=== PATIENT | female | born 1985 | race Two or more races ===

== ENCOUNTER 2024-07-19 05:08 | Emergency (ER) | payer MEDICAID, SELFPAY ==
[2024-07-19 05:21] VITALS: BP 122/71; PULSE 109; RESP 17; TEMP 36.9; O2SAT 98
[2024-07-19 05:22] VITALS: BMI 30.7
--- NOTE | 2024-07-19 05:27 | PD.EDRME ---
Rapid Medical Screening Exam RME Arrival date/time: 07/19/24 05:08 38-year-old female with past medical history of diverticulosis presents emergency department complaining of left lower quadrant abdominal pain with nausea that started yesterday. Chief Complaint: Abdominal Pain Time Seen by Provider: 07/19/24 05:23 Vital signs: Vital Signs Temperature 98.4 F 07/19/24 05:21 Pulse Rate 109 H 07/19/24 05:21 Respiratory Rate 17 07/19/24 05:21 Blood Pressure 122/71 07/19/24 05:21 Pulse Oximetry (%) 98 07/19/24 05:21 Oxygen Delivery Method Room Air 07/19/24 05:21 Vital signs reviewed by provider: Yes
[2024-07-19] MEDS: HYDROcodone/APAP 5/325 TABLET 1 TAB PO (05:36)
[2024-07-19] MEDS: ONDANSETRON ODT 4 MG TABRAP PO (05:36)
[2024-07-19 05:56] LABS: Collection Type, Urine Clean Catch
[2024-07-19 05:59] LABS: Bilirubin,Urine Negative (Negative); Blood,Urine 1+ (Negative); Clarity,Urine Clear (Clear/Hazy); Color,Urine Lt-Yellow (Lt Yel-Yel); Culture Indicated,Urine Not Indicated; Glucose, Urine Negative (Negative); Ketones,Urine Negative (Negative); Leukocyte Esterase,Urine Negative (Negative); Nitrite,Urine Negative (Negative); Protein,Urine Trace (Neg - Trace); RBC,Urine 4 /hpf (0-3); Squamous Epithelial Cell,Urine 2 /hpf (0-5); Urobilinogen,Urine Negative mg/dL (0.0-1.0); WBC,Urine 2 /hpf (0-5)
--- NOTE | 2024-07-19 06:20 | XR_ITS ---
Examination: CT abdomen and pelvis without contrast. Coronal 3-D reconstructions. Sagittal 2-D reconstructions. Date and time of exam:July 19, 2024 0748 hrs. Indications: Left-sided abdominal pain beginning today Comparison: July 03, 2023 CTDI: vol (mGy): 11.1 DLP: (mGycm): 652 Technique: Axial images of the abdomen have been obtained, 3 mm slice thickness Intravenous contrast material has not been administered. Low dose protocols were performed. One or more of the following dose reduction techniques were used; automated exposure control, adjustment of the mA and/or KV according to patient size, use of iterative reconstruction technique. 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
[2024-07-19 06:29] LABS: Basophils % (Auto) 0 % (0-2.5); Eosinophils % (Auto) 0 % (0-10); Hematocrit 34.4 % (36.0-46.0); Hemoglobin 11.6 g/dL (12.0-16.0); Immature Granulocytes % (Auto) 0 % (0-0); Immature Granulocytes Auto 0.04 Thou/mm3 (0.00-0.00); Lymphocytes # (Auto) 1.1 Thou/mm3 (1.0-4.8); Lymphocytes % (Auto) 9 % (10-50); Mean Corpuscular HGB Conc 33.7 g/dl (31.0-37.0); Mean Corpuscular Hemoglobin 29.8 pg (25.0-35.0); Mean Corpuscular Volume 88 fL (80-100); Monocytes % (Auto) 9 % (0-12); Neutrophils % (Auto) 81 % (37-80); Nucleated Red Blood Cell % 0 /100 WBC (0); Platelet Count 306 Thou/mm3 (140-440); RDW Standard Deviation 41.4 fL (36.4-46.3); Red Blood Count 3.89 Miln/mm3 (4.00-5.20); White Blood Count 11.2 Thou/mm3 (3.6-11.0)
[2024-07-19 06:49] LABS: Alanine Aminotransferase 32 U/L (10-49); Albumin, Serum 4.7 gm/dL (3.5-5.0); Albumin/Globulin Ratio 1.6 (1.2-2.2); Alkaline Phosphatase 91 U/L (46-116); Anion Gap 6 (7-16); Aspartate Amino Transferase 40 U/L (0-34); BUN/Creatinine Ratio 27 Ratio (12-20); Bilirubin,Total 0.6 mg/dL (0.3-1.2); Blood Urea Nitrogen 16 mg/dL (9-23); Calcium 9.3 mg/dL (8.3-10.6); Calcium (Corrected) 9.3 mg/dL (8.5-10.1); Carbon Dioxide 28.3 mMol/L (20.0-31.0); Chloride 102 mMol/L (98-107); Creatinine (Component) 0.6 mg/dL (0.6-1.3); Estimated Creatinine Clearance 140.6 mL/min (>60); Globulin 2.9 gm/dL (2.3-3.5); Glucose 110 mg/dL (74-106); Lipase 39 U/L (12-53); Osmolality,Calculated 274 (275-295); Sodium 136 mMol/L (136-145); Total Protein 7.6 gm/dL (5.7-8.2); eGFR > 60 See Note
[2024-07-19 07:23] LABS: HCG,Qualitative Serum Negative
--- NOTE | 2024-07-19 08:58 | EDNOTE_ITS ---
<Statement entered by Sharon Turcios MD - 07/19/24 16:22> As co-signing physician, I was present and available for consult prn. I concur with the plan and care as documented by the midlevel provider. ED Abdominal Pain RME/HPI General Chief Complaint: Abdominal Pain Stated complaint: LLQ PAIN Time seen by provider: 07/19/24 05:23 Arrival date/time: 07/19/24 05:08 38-year-old female with history of chronic abdominal pain/diverticulitis/possible Crohn's disease with surgical history significant for gastric sleeve 5 years ago presents to the emergency department today with complaint of left lower quadrant pain x 1 day Limitations: no limitations RME / HPI RME / HPI narrative: 07/19/24 05:08 38-year-old female with past medical history of diverticulosis presents emergency department complaining of left lower quadrant abdominal pain with nausea that started yesterday. Related Data Home Medications ?Medication ?Instructions ?Recorded ?Confirmed fluoxetine 20 mg capsule 20 mg PO DAILY 05/24/22 05/26/22 Previous Rx's ?Medication ?Instructions ?Recorded azathioprine 50 mg tablet 50 mg PO QDAY #30 tabs 05/26/22 folic acid 1 mg tablet 1 mg PO QDAY #30 tabs 05/26/22 cyclobenzaprine 5 mg tablet 5 mg PO QHSPRN PRN muscle spasm 02/18/23 #10 tabs ibuprofen 600 mg tablet 600 mg PO TID PRN pain #30 tabs 02/18/23 acetaminophen 650 mg 650 mg PO Q8H PRN fever or pain 07/04/23 tablet,extended release #30 tabs ciprofloxacin HCl 500 mg tablet 500 mg PO BID 7 days #14 tabs 07/19/24 hydrocodone 5 mg-acetaminophen 325 1 tab PO BID PRN pain #10 tabs 07/19/24 mg tablet metronidazole 500 mg tablet 500 mg PO TID 7 days #21 tabs 07/19/24 Allergies Allergy/AdvReac Type Severity Reaction Status Date / Time No Known Allergies Allergy Verified 05/24/22 21:40 Review of Systems Review of Systems Systems Reviewed: All systems reviewed, normal except as documented Constitutional Constitutional: Reports system reviewed and no additional complaints, except as documented, Denies fever(s) and Denies headache(s) Eyes Eyes: Reports system reviewed and no additional complaints, except as documented and Denies blurry vision ENT Ears, Nose, Mouth, and Throat: Reports system reviewed and no additional complaints, except as documented, Denies headache(s), Denies nasal congestion and Denies nasal discharge Cardiovascular Cardiovascular: Reports system reviewed and no additional complaints, except as documented, Denies chest pain and Denies dyspnea Respiratory Respiratory: Reports system reviewed and no additional complaints, except as documented, Denies chest congestion, Denies cough and Denies dyspnea Gastrointestinal Gastrointestinal: Reports system reviewed and no additional complaints, except as documented and Reports abdominal pain Integumentary/Breasts Skin/Breast: Reports system reviewed and no additional complaints, except as documented and Denies rash Neurologic Neurologic: Reports system reviewed and no additional complaints, except as documented, Reports as per HPI and Denies headache(s) Past Medical History Past Medical History NEUROLOGIC: Negative Neurological Disorders or Seizures CARDIAC: Positive Hypertension; Negative Cardiac Disorders or Congestive Heart Failure RESPIRATORY: Negative Chronic Obstructive Pulmonary Disease (COPD) or Asthma GASTROINTESTINAL: Positive Gastrointestinal Disorders, Diverticulitis, Diverticulosis and Crohn's Disease; Negative Hepatitis, Gall Bladder Disease, Gastrointestinal Bleed, Colitis, Ulcerative Colitis, Ulcer, Colorectal Cancer, Irritable Bowel or Gastroesophageal Reflux Disease GENITOURINARY: Negative Genitourinary Disorders or Renal Disease REPRODUCTIVE: Positive Previous Pregnancies; Negative Breast Cancer MUSCULOSKELETAL: Negative Musculoskeletal Disorders or Bone Cancer ENDOCRINE: Negative Endocrine Disorders, Diabetes Mellitus Type 1 or Diabetes Mellitus Type 2 HEMATOLOGIC: Negative Blood Disorders, Anemia, Sickle Cell Disease or Clotting Problems PSYCHO/SOCIAL: Positive Depression and Anxiety OTHER HISTORY: Positive Chicken Pox; Negative Autoimmune Disease, Falls, Blood Transfusions, Anesthesia Reactions, MRSA, Cancer, Breast Cancer, Cervical Cancer, Colorectal Cancer, Lung Cancer or Ovarian Cancer Family History FAMILY HISTORY: Positive Family Cardiac Disorders; Negative Family Psychiatric Problems, Family Respiratory Disorders, Family Gastrointestinal Problems, Family Cancer, Family Surgery or Family Anesthesia Reaction Surgical History SURGICAL: Positive Abdominal Surgery, Tubal Ligation and Section; Negative Cardiac Surgery, Endocrine Surgery, Ear Surgery, Nephrectomy or Joint Replacement Social History SMOKING STATUS: Never smoker SECOND HAND EXPOSURE: No SUBSTANCE USE: does not use ED Exam General Limitations: Present no limitations General appearance: Present alert and in no apparent distress Head Head exam: Present atraumatic, normocephalic and normal inspection Eye Eye exam: Present normal appearance, PERRL and EOMI; Absent conjunctival injection ENT ENT exam: Present normal exam, normal oropharynx and mucous membranes moist Neck Neck exam: Present normal inspection, full ROM and trachea midline Chest Chest inspection: Present normal inspection and symmetric chest wall rise Respiratory Respiratory exam: Present normal lung sounds bilaterally; Absent respiratory distress Cardiovascular Cardiovascular exam: Present regular rate, normal rhythm and normal heart sounds Abdominal Exam Abdominal exam: Present soft, tenderness and normal bowel sounds; Absent distention, guarding, rebound or rigidity Abdominal tenderness: Present LLQ, mild and moderate Extremities Exam Extremities exam: Present normal inspection and full ROM Back Exam Back exam: Present normal inspection and full ROM Neurological Exam Neurological exam: Present alert, oriented X3 and CN II-XII intact Psychiatric Psychiatric exam: Present normal affect and normal mood Skin Skin exam: Present warm, dry, intact and normal color Course Quality Measures none Orders Category Date Time Status CT abdomen pelvis wo con Stat Exams 07/19/24 06:20 Completed CBC Stat Lab 07/19/24 06:22 Completed CMP [Comprehensive Metabolic Panel] Stat Lab 07/19/24 06:22 Completed HCG,Qualitative Serum Stat Lab 07/19/24 06:22 Completed Lipase Stat Lab 07/19/24 06:22 Completed Urinalysis, C/S if Indicated Stat Lab 07/19/24 05:47 Completed HYDROcodone*/APAP 5/325 [[place] 5/325] Med 07/19/24 05:26 Discontinued 1 tab PO X1 ONE Ketorolac Inj [Toradol Inj] Med 07/19/24 08:59 Discontinued 30 mg IM X1 ONE Lidocaine 1% 20 ml [Xylocaine 1% 20 ML] Med 07/19/24 08:59 Discontinued 2.1 ml INFL X1 ONE Ondansetron Odt [Zofran Odt] Med 07/19/24 05:26 Discontinued 4 mg PO X1 ONE cefTRIAXone [Rocephin] Med 07/19/24 08:59 Discontinued 1,000 mg IM X1 ONE Vital Signs Vital signs: Vital Signs Temperature 98.4 F 07/19/24 05:21 Pulse Rate 109 H 07/19/24 05:21 Respiratory Rate 17 07/19/24 05:21 Blood Pressure 122/71 07/19/24 05:21 Pulse Oximetry (%) 98 07/19/24 05:21 Oxygen Delivery Method Room Air 07/19/24 05:21 O2 saturation 98% room air within the limits Abdominal Pain MDM MDM Narrative MDM Narrative:: 38-year-old female with history of chronic abdominal pain/diverticulitis/possible Crohn's disease with surgical history significant for gastric sleeve 5 years ago presents to the emergency department today with complaint of left lower quadrant pain x 1 day On exam patient is tenderness left lower abdomen Patient given pain medication here Lab work and CT reviewed Lab work unremarkable CT shows significant diverticulitis As patient is afebrile has no vomiting patient was given Rocephin here discharged with antibiotics instructed return tomorrow for repeat injection of Rocephin Consultation: Based on the CT reading I consulted Dr. Davis who evaluated the patient and felt the patient be discharged home at this time without any further surgical intervention Patient discharged home in no distress to follow-up with primary care doctor in the next 24 to 48 hours and for any worsening symptoms to return to the ER immediately Patient data External records reviewed:: [facility] previous records Clinical information provided by:: patient Social determinants that could affect healthcare access:: none Patient has the following chronic illnesses:: See history How is presenting disease/condition affected by chronic disease/condition?: caused by Evaluation data The following diagnostics were reviewed and interpreted by me:: lab results and radiology exam(s) Lab and/or radiology exams considered but not ordered:: Labs radiology obtained Interpretation Summary: Reviewed by me Medications / Prescriptions Medications or Prescriptions considered but not ordered:: Given Medication administrations:: Medication Administration History Discontinued Medications Hydrocodone Bitart/Acetaminophen (Hydrocodone/[place] 5/325 Tablet) 1 tab PO X1 ONE Stop: 07/19/24 05:27 Last Admin: 07/19/24 05:36 Dose: 1 tab Documented By: SANTOS Ceftriaxone Sodium (Ceftriaxone Sod Inj 1,000 Mg Vial) 1,000 mg IM X1 ONE Stop: 07/19/24 09:00 Last Admin: 07/19/24 09:07 Dose: 1,000 mg Documented By: AMANDA Ketorolac Tromethamine (Ketorolac Inj 30 Mg/Ml Vial) 30 mg IM X1 ONE Stop: 07/19/24 09:00 Last Admin: 07/19/24 09:06 Dose: 30 mg Documented By: AMANDA Lidocaine HCl (Lidocaine Hcl 1% 20 Ml Vial) 2.1 ml INFL X1 ONE Stop: 07/19/24 09:00 Last Admin: 07/19/24 09:07 Dose: 2.1 ml Documented By: AMANDA Comments: with rocephin on right hip Ondansetron HCl (Ondansetron Odt 4 Mg Tabrap) 4 mg PO X1 ONE; Protocol Stop: 07/19/24 05:27 Last Admin: 07/19/24 05:36 Dose: 4 mg Documented By: CB Given Consultations Consultation(s) initiated? (list below): Yes Consultation #1 (Physician, Specialty, Details): Dr. Davis Diagnosis Differential diagnosis abdominal pain: abdominal pain, acute appendicitis, gastroenteritis and pancreatitis Most likely diagnosis given after review of the tests above:: Abdominal pain Admission Indicated Admission indicated?: not indicated Admission Request Was there a request for admission?: No Disposition Plan Disposition Plan: Discharge Discharge Attestation Discharge Attestation: The patient and all family members were given an opportunity to ask questions and understood the discharge instructions. Discharge instructions specifically effects, indications for sooner follow up or return to the emergency department, and the expected course of current diagnosis. Patient condition: Stable Discharge Plan Plan Patient Disposition: HOME (Self Care) Disposition Comment: Stable Prescriptions/Referrals Prescriptions/Med Rec: New hydrocodone-acetaminophen 5-325 mg tablet 1 tab PO BID MDD 10 PRN (Reason: pain) Qty: 10 0RF metronidazole 500 mg tablet 500 mg PO TID 7 Days Qty: 21 0RF ciprofloxacin HCl 500 mg tablet 500 mg PO BID 7 Days Qty: 14 0RF No Action fluoxetine 20 mg capsule 20 mg PO DAILY azathioprine 50 mg Tablet 50 mg PO QDAY Qty: 30 0RF folic acid 1 mg Tablet 1 mg PO QDAY Qty: 30 0RF ibuprofen 600 mg tablet 600 mg PO TID PRN (Reason: pain) Qty: 30 0RF cyclobenzaprine 5 mg tablet 5 mg PO QHSPRN PRN (Reason: muscle spasm) Qty: 10 0RF acetaminophen 650 mg tablet extended release 650 mg PO Q8H PRN (Reason: fever or pain) Qty: 30 0RF Referrals: No Primary/Family,Physician [Primary Care Provider] - In 1 week Problem List Clinical Impression: Diverticulitis Patient/Caregiver Discharge Instructions Education Materials: ED Diverticulitis Additional Instructions: Please return tomorrow for repeat injection of Rocephin for worsening symptoms or concerns return to ER immediately Print Language: [place] Citizen Stand Alone Forms: Brenda Award Info., Patient Portal Info Letter PA/PROGRAMMING EQUIPMENT OPERATOR Supervising Physician PA/PROGRAMMING EQUIPMENT OPERATOR Supervising Physician: Dr. turcios
[2024-07-19] MEDS: KETOROLAC INJ 30 MG/ML VIAL IM (09:06)
[2024-07-19 09:07] VITALS: BP 112/72; PULSE 84; RESP 18; TEMP 37.1; O2SAT 99
[2024-07-19] MEDS: cefTRIAXone SOD INJ 1,000 MG VIAL 1000 MG IM (09:07)
[2024-07-19] MEDS: LIDOCAINE HCL 1% 20 ML VIAL 2.1 ML INFL (09:07)
== END 2024-07-19 09:26 | disposition home or self-care (01) ==
PROVIDERS: Emergency Provider Emergency Medicine
DX: K57.32 Diverticulitis of large intestine without perforation or abscess without bleeding (principal)
CPT/HCPCS: 36415; 74176; 80053; 81001; 83690; 84703; 85025; 96372; 99284; J0696; J1885; J3490; Q0162; A9270

== ENCOUNTER 2024-07-20 11:32 | Emergency (ER) | payer MEDICAID, SELFPAY ==
--- NOTE | 2024-07-20 11:36 | EDNOTE_ITS ---
<Statement entered by Sharon Turcios MD - 07/20/24 16:22> As co-signing physician, I was present and available for consult prn. I concur with the plan and care as documented by the midlevel provider. ED General RME/HPI General Chief complaint: General Adult/Misc Complain Stated complaint: REPEAT ROCEPHIN INJECTION Time Seen by Provider: 07/20/24 11:33 Arrival date/time: 07/20/24 11:32 38-year-old female diagnosed with diverticulitis yesterday presents emergency department today was instructed by myself to return for repeat Rocephin injection. Patient reports no fever nausea vomiting patient reports abdominal pain has improved Limitations: no limitations Related Data Home Medications ?Medication ?Instructions ?Recorded ?Confirmed fluoxetine 20 mg capsule 20 mg PO DAILY 05/24/22 05/26/22 Previous Rx's ?Medication ?Instructions ?Recorded azathioprine 50 mg tablet 50 mg PO QDAY #30 tabs 05/26/22 folic acid 1 mg tablet 1 mg PO QDAY #30 tabs 05/26/22 cyclobenzaprine 5 mg tablet 5 mg PO QHSPRN PRN muscle spasm 02/18/23 #10 tabs ibuprofen 600 mg tablet 600 mg PO TID PRN pain #30 tabs 02/18/23 acetaminophen 650 mg 650 mg PO Q8H PRN fever or pain 07/04/23 tablet,extended release #30 tabs ciprofloxacin HCl 500 mg tablet 500 mg PO BID 7 days #14 tabs 07/19/24 hydrocodone 5 mg-acetaminophen 325 1 tab PO BID PRN pain #10 tabs 07/19/24 mg tablet metronidazole 500 mg tablet 500 mg PO TID 7 days #21 tabs 07/19/24 Allergies Allergy/AdvReac Type Severity Reaction Status Date / Time No Known Allergies Allergy Verified 05/24/22 21:40 Review of Systems Review of Systems Systems Reviewed: All systems reviewed, normal except as documented Constitutional Constitutional: Reports system reviewed and no additional complaints, except as documented, Denies fever(s) and Denies headache(s) Eyes Eyes: Reports system reviewed and no additional complaints, except as documented and Denies blurry vision ENT Ears, Nose, Mouth, and Throat: Reports system reviewed and no additional complaints, except as documented, Denies headache(s), Denies nasal congestion and Denies nasal discharge Cardiovascular Cardiovascular: Reports system reviewed and no additional complaints, except as documented, Denies chest pain and Denies dyspnea Respiratory Respiratory: Reports system reviewed and no additional complaints, except as documented, Denies chest congestion, Denies cough and Denies dyspnea Gastrointestinal Gastrointestinal: Reports system reviewed and no additional complaints, except as documented, Reports abdominal pain, Denies nausea and Denies vomiting Integumentary/Breasts Skin/Breast: Reports system reviewed and no additional complaints, except as documented and Denies rash Neurologic Neurologic: Reports system reviewed and no additional complaints, except as documented, Reports as per HPI and Denies headache(s) Past Medical History Past Medical History NEUROLOGIC: Negative Neurological Disorders CARDIAC: Negative Cardiac Disorders ED Exam General Limitations: Present no limitations General appearance: Present alert and in no apparent distress Head Head exam: Present atraumatic Eye Eye exam: Present normal appearance, PERRL and EOMI ENT ENT exam: Present normal exam, normal oropharynx and mucous membranes moist Neck Neck exam: Present normal inspection, full ROM and trachea midline Chest Chest inspection: Present normal inspection and symmetric chest wall rise Respiratory Respiratory exam: Present normal lung sounds bilaterally Cardiovascular Cardiovascular exam: Present regular rate, normal rhythm and normal heart sounds Abdominal Exam Abdominal exam: Present soft, tenderness and normal bowel sounds; Absent distention, guarding, rebound or rigidity Abdominal tenderness: Present LLQ and mild Extremities Exam Extremities exam: Present normal inspection and full ROM Back Exam Back exam: Present normal inspection and full ROM Neurological Exam Neurological exam: Present alert, oriented X3 and CN II-XII intact Psychiatric Psychiatric exam: Present normal affect and normal mood Skin Skin exam: Present warm, dry, intact and normal color Course Quality Measures none Orders Category Date Time Status Ketorolac Inj [Toradol Inj] Med 07/20/24 11:33 Discontinued 30 mg IM X1 ONE Lidocaine 1% 20 ml [Xylocaine 1% 20 ML] Med 07/20/24 11:33 Discontinued 2.1 ml INFL X1 ONE cefTRIAXone [Rocephin] Med 07/20/24 11:33 Discontinued 1,000 mg IM X1 ONE Vital Signs Vital signs: Vital Signs Temperature 98.3 F 07/20/24 11:42 Pulse Rate 88 07/20/24 11:42 Respiratory Rate 16 07/20/24 11:42 Blood Pressure 106/71 07/20/24 11:42 Pulse Oximetry (%) 99 07/20/24 11:42 Oxygen Delivery Method Room Air 12/25/24 11:42 O2 saturation 99% room air within normal limits MDM Patient data External records reviewed:: [facility] previous records Clinical information provided by:: patient Social determinants that could affect healthcare access:: none Patient has the following chronic illnesses:: See history How is presenting disease/condition affected by chronic disease/condition?: exacerbated by Evaluation data The following diagnostics were reviewed and interpreted by me:: lab results and radiology exam(s) Lab and/or radiology exams considered but not ordered:: Labs and radiology improvement yesterday Interpretation Summary: Reviewed by me Medications Medications considered but not ordered:: Given Medication administrations:: Medication Administration History Discontinued Medications Ceftriaxone Sodium (Ceftriaxone Sod Inj 1,000 Mg Vial) 1,000 mg IM X1 ONE Stop: 07/20/24 11:34 Last Admin: 07/20/24 11:44 Dose: 1,000 mg Documented By: SREEDHAR Ketorolac Tromethamine (Ketorolac Inj 30 Mg/Ml Vial) 30 mg IM X1 ONE Stop: 07/20/24 11:34 Last Admin: 07/20/24 11:42 Dose: 30 mg Documented By: SREEDHAR Lidocaine HCl (Lidocaine Hcl 1% 20 Ml Vial) 2.1 ml INFL X1 ONE Stop: 07/20/24 11:34 Last Admin: 07/20/24 11:45 Dose: 2.1 ml Documented By: SREEDHAR Given Consultations Consultation(s) initiated? (list below): No Diagnosis Differential Diagnosis ED Complaint MDM: Appendicitis, gastritis, renal colic, diverticulitis Most likely diagnosis given after review of the tests above:: Diverticulitis Admission Indicated Admission indicated?: not indicated Explain why admission is indicated or not indicated:: no criteria Admission Request Was there a request for admission?: No Disposition Plan Disposition Plan: Discharge Discharge Attestation Discharge Attestation: The patient and all family members were given an opportunity to ask questions and understood the discharge instructions. Discharge instructions specifically effects, indications for sooner follow up or return to the emergency department, and the expected course of current diagnosis. Patient condition: Stable Medical Decision Making MDM Narrative MDM Narrative: 38-year-old female diagnosed with diverticulitis yesterday presents emergency department today was instructed by myself to return for repeat Rocephin injection. Patient reports no fever nausea vomiting patient reports abdominal pain has improved On exam patient well-appearing patient does not appear ill or toxic Patient given repeat dose of Rocephin as well as Toradol Patient instructed to finish antibiotics as prescribed and follow-up with GI specialist For emergent concerns patient instructed to return immediately Differential Diagnosis Differential Diagnosis: Appendicitis, gastritis, renal colic, diverticulitis Medical Records Medical records reviewed: Yes I reviewed the patient's medical records. Discharge Plan Plan Patient Disposition: HOME (Self Care) Disposition Comment: Stable Prescriptions/Referrals Prescriptions/Med Rec: No Action fluoxetine 20 mg capsule 20 mg PO DAILY azathioprine 50 mg Tablet 50 mg PO QDAY Qty: 30 0RF folic acid 1 mg Tablet 1 mg PO QDAY Qty: 30 0RF hydrocodone-acetaminophen 5-325 mg tablet 1 tab PO BID MDD 10 PRN (Reason: pain) Qty: 10 0RF metronidazole 500 mg tablet 500 mg PO TID 7 Days Qty: 21 0RF ciprofloxacin HCl 500 mg tablet 500 mg PO BID 7 Days Qty: 14 0RF ibuprofen 600 mg tablet 600 mg PO TID PRN (Reason: pain) Qty: 30 0RF cyclobenzaprine 5 mg tablet 5 mg PO QHSPRN PRN (Reason: muscle spasm) Qty: 10 0RF acetaminophen 650 mg tablet extended release 650 mg PO Q8H PRN (Reason: fever or pain) Qty: 30 0RF Problem List Clinical Impression: Diverticulitis Patient/Caregiver Discharge Instructions Additional Instructions: Please follow up with your primary care doctor in the next 24-48hrs for any worsening symptoms return here immediately Print Language: [place] Stand Alone Forms: Brenda Award Info., Patient Portal Info Letter PA/PHYSICAL THERAPY AIDE Supervising Physician PA/PHYSICAL THERAPY AIDE Supervising Physician: Dr. TURCIOS
[2024-07-20 11:42] VITALS: BP 106/71; PULSE 88; RESP 16; TEMP 36.8; O2SAT 99; BMI 30.7
[2024-07-20] MEDS: KETOROLAC INJ 30 MG/ML VIAL IM (11:42)
[2024-07-20] MEDS: cefTRIAXone SOD INJ 1,000 MG VIAL 1000 MG IM (11:44)
[2024-07-20] MEDS: LIDOCAINE HCL 1% 20 ML VIAL 2.1 ML INFL (11:45)
== END 2024-07-20 12:01 | disposition home or self-care (01) ==
LOC: SERX 11:40
PROVIDERS: Emergency Provider Emergency Medicine
DX: K57.92 Diverticulitis of intestine, part unspecified, without perforation or abscess without bleeding (principal)
CPT/HCPCS: 96372; 99283; J0696; J1885; J3490